=== PATIENT | female | born 1965 | race Caucasian/White ===

== ENCOUNTER 2019-10-09 05:59 | Inpatient (IN) ==
--- NOTE | 2019-09-19 15:58 | PAT Medication Instructions ---
Medication Instructions Date of Service September 19, 2019 Home Medications amlodipine 5 mg PO QAM rcfzsxmqge-mdcisrnrkfzzx-yhlu 1 tab PO HS PRN cholecalciferol (vitamin D3) [Vitamin D3] 25 mcg PO QAM qlwibvcvjly-mtutizmma-nclkxtka [Trelegy Ellipta] 1 inh INHALATION DAILY PRN hydrocodone-acetaminophen 1 tab PO Q6H PRN metoprolol tartrate 25 mg PO BID roflumilast [Daliresp] 500 mcg PO QAM zonisamide [Zonegran] 200 mg PO BID ASK your surgeon for instructions zjkxnjgfxu-vofklpqsnqerj-xuub 1 tab PO HS PRN DO NOT take the morning of surgery cholecalciferol (vitamin D3) [Vitamin D3] 25 mcg PO QAM roflumilast [Daliresp] 500 mcg PO QAM Take morning of surgery With a small sip of water, OTHERWISE NOTHING TO EAT OR DRINK AFTER MIDNIGHT: amlodipine 5 mg PO QAM ckrqvuklpoh-ecgvajmdg-llrlrntt [Trelegy Ellipta] 1 inh INHALATION DAILY PRN (if needed) hydrocodone-acetaminophen 1 tab PO Q6H PRN (okay to take up to 4 hours prior to surgery if needed) metoprolol tartrate 25 mg PO BID zonisamide [Zonegran] 200 mg PO BID Take evening before surgery dbdrauirtfj-kbdpgfpni-cjukozyx [Trelegy Ellipta] 1 inh INHALATION DAILY PRN (if needed) hydrocodone-acetaminophen 1 tab PO Q6H PRN (if needed) metoprolol tartrate 25 mg PO BID zonisamide [Zonegran] 200 mg PO BID Other Notes If you have any questions please call us at [phone] or [phone] or [phone] or [phone]
--- NOTE | 2019-09-24 13:14 | Anesthesiology Consultation ---
Date of Service September 24, 2019 Assessment & Plan (1) Encounter for pre-operative examination: Per PAT assessment on 09/23: Travel screen negative. No known COVID-19 positive contacts. No current COVID-19 related symptoms. No hx of COVID-19 testing in past 30 days. Chart Review Chart Review: Acceptable Risk for Surgery and Patient seen in Pre Admission Testing Teaching & Discussion Pre-Anesthesia Teaching/Discussion Notes: Instructed NPO after midnight before surgery,except medications with 15 cc of water. Medication instructions provided according to the PAT guidelines. History Surgery Operation Date: 10/09/19 13:55 Proposed Procedures p C4-C6 nterior Cervical Discectomy and Fusion, Spinal Cord Monitoring - Juancarlos Maria, Height/Weight Height: 4 ft 11 in Weight: 72 kg Allergies Allergy/AdvReac Type Severity Reaction Status Date / Time aspirin Allergy Severe Swelling Verified 09/17/19 11:20 of Lip/Tongue/Throat bacitracin Allergy Severe Hives Verified 09/17/19 11:20 [From Neosporin ([id number])] neomycin Allergy Severe Hives Verified 09/17/19 11:20 [From Neosporin ([id number])] Penicillins Allergy Severe Swelling Verified 09/17/19 11:20 of Lip/Tongue/Throat polymyxin B Allergy Severe Hives Verified 09/17/19 11:20 [From Neosporin ([id number])] Sulfa (Sulfonamide Allergy Severe Swelling Verified 09/17/19 11:20 Antibiotics) of Lip/Tongue/Throat Medications Home Medications Medication Instructions Recorded Confirmed Last Taken amlodipine 5 mg PO QAM 09/17/19 09/17/19 Unknown fvzlkledbv-vhainegkekmzy-bzfu 1 tab PO HS PRN 09/17/19 09/17/19 Unknown cholecalciferol (vitamin D3) 25 mcg PO QAM 09/17/19 09/17/19 Unknown [Vitamin D3] bxcqpcujrgn-beurpjnaf-rvdzcrsh 1 inh INHALATION DAILY PRN 09/17/19 09/17/19 Unknown [Trelegy Ellipta] hydrocodone-acetaminophen 1 tab PO Q6H PRN 09/17/19 09/17/19 Unknown metoprolol tartrate 25 mg PO BID 09/17/19 09/17/19 Unknown roflumilast [Daliresp] 500 mcg PO QAM 09/17/19 09/17/19 Unknown zonisamide [Zonegran] 200 mg PO BID 09/17/19 09/17/19 Unknown rgkejnmicdmo-fltw-rsmtx acid 2 tab PO DAILY 09/24/19 09/24/19 Unknown [Centrum Women] Past Medical History Medical History (Updated 09/25/19 @ 08:54 by Destinee Vigil) Anxiety Chronic back pain Chronic obstructive pulmonary disease Degenerative disc disease Glaucoma History of cardiac arrhythmia denies a.fib/a. flutter, ?PVCs (NSR without arrhythmia on 09/24/19 preop EKG at [facility])- limited details from patient, controlled on metoprolol Hypertension Migraine Osteoarthritis Exercise / Class Metabolic Activity II 4-5 Yardwork/Stairs/Walk up hill (walk multiple miles per day without chest pain/sob) Past Surgical History Surgical History History of arthroscopy RIGHT History of bilateral tubal ligation History of cholecystectomy History of colonoscopy History of endoscopic sinus surgery X2 History of repair of rotator cuff RIGHT History of surgery on arm RIGHT FOR BREAK TEEN History of tonsillectomy History of tooth extraction Past Anesthesia History No Hx of Anesthesia Complications and No Family Hx of Anesthesia Complications History of PONV No Hx of PONV and No Hx of Motion Sickness Social History Smoking Status: Current every day smoker tobacco type: cigarettes Smoking cigarettes per day: < 1/2 PPD x 30+ years Do You Dip or Chew Tobacco: No Hx Alcohol Use: Yes alcohol intake frequency: holidays/special occasions only Hx Substance Use: No substance use type: does not use Review of Systems Patient denies chest pain, shortness of breath, fever, chills, cough, wheezing, palpitations. Physical Exam Vital Signs VITALS BP 134/75 P 76 TEMP 98.3 SP02 96%RA RESP 16 PHYSICAL Decreased cervical extension 2/2 cervicalgia Full TMJ range of motion. TMD 3 finger breaths Mallampati Score 3 Dentition: full dentures upper/lower Lungs: clear throughout to auscultation Cardiac: regular rate and rhythm, no murmurs noted Spine: normal Carotid arteries: negative bruit Extremities: no edema Testing Laboratory Results 09/24/19 13:40 09/24/19 13:40 PT 10.0 Seconds (9.0-12.0) 09/24/19 13:40 INR 0.9 (0.9-1.1) 09/24/19 13:40 APTT 28.2 Seconds (21.0-31.0) 09/24/19 13:40 Urine Color Yellow 09/24/19 12:18 Urine Appearance Clear (Clear) 09/24/19 12:18 Urine pH 7.0 (4.5-7.5) 09/24/19 12:18 Ur Specific [place] 1.008 (1.000-1.030) 09/24/19 12:18 Urine Protein Negative (Negative) 09/24/19 12:18 Urine Glucose (UA) Negative (Negative) 09/24/19 12:18 Urine Ketones Negative (Negative) 09/24/19 12:18 Urine Nitrite Negative (Negative) 09/24/19 12:18 Ur Leukocyte Esterase Negative (Negative) 09/24/19 12:18 Blood Type O Positive 09/24/19 13:40 Antibody Screen NEGATIVE 09/24/19 13:40 Electrocardiogram Date: 09/24/19 Findings: + NSR @ (75) Chest X-Ray Date: 09/24/19 FINDINGS: The cardiac and mediastinal contours are normal. There is no evidence of focal pulmonary consolidation. There is no evidence of failure. No pleural effusions are visualized.[Slight indistinctness of the lower left heart border is likely secondary to a fat pad. An equivocal 7 mm nodule projected beneath the left hemidiaphragm, is likely either postinflammatory or related to gastric contents. IMPRESSION: No active disease in the chest. No active disease in the chest. Will have PAT medical secretary receptionist forward CXR report to PCP for their reference*
--- NOTE | 2019-09-24 14:11 | XRay Report ---
XR chest Pre-admission PA/Lat CLINICAL HISTORY: Preoperative chest COMPARISON STUDY: No previous studies for comparison. FINDINGS: The cardiac and mediastinal contours are normal. There is no evidence of focal pulmonary co nsolidation. There is no evidence of failure. No pleural effusions are visualized.[Slight indistinctn ess of the lower left heart border is likely secondary to a fat pad. An equivocal 7 mm nodule project ed beneath the left hemidiaphragm, is likely either postinflammatory or related to gastric contents. IMPRESSION: No active disease in the chest. ACT 112: Negative or not required by law. Electronically signed by: Ravin Pillai M.D. 09/24/2019 2:10 PM
[2019-09-24 14:33] LABS: Appearance Urine Clear (Clear); Bilirubin Urine Negative (Negative); Blood Urine Negative (Negative); Color Urine Yellow; Glucose Urine UA Negative (Negative); Ketones Urine Negative (Negative); Leukocyte Esterase Urine Negative (Negative); Nitrite Urine Negative (Negative); Protein Urine Negative (Negative); Specific Gravity Urine 1.008 (1.000-1.030); Urobilinogen Urine Negative (Negative)
[2019-09-24 16:03] LABS: Basophils # (auto) 0.04 K/uL (0-0.2); Basophils % (auto) 0.4 %; Eosinophils # (auto) 0.18 K/uL (0-0.5); Eosinophils % (auto) 1.7 %; Hematocrit (blood only) 40.4 % (37-47); Hemoglobin 13.3 g/dL (12.0-16.0); Immature Granulocytes # (auto) 0.02 K/uL (0.00-0.02); Immature Granulocytes % (auto) 0.2 %; Lymphocytes # (auto) 2.84 K/uL (1.2-3.4); Lymphocytes % (auto) 26.2 %; Mean Corpuscular Hemoglobin 28.4 pg (25-34); Mean Corpuscular Hgb Conc 32.9 g/dL (32-36); Mean Corpuscular Volume 86.3 fL (80-100); Mean Platelet Volume 11.5 fL (7.4-10.4); Monocytes # (auto) 0.74 K/uL (0.11-0.59); Monocytes % (auto) 6.8 %; Neutrophils % (auto) 64.7 %; Platelet Count 280 K/uL (130-400); RDW Coefficient of Variation 13.7 % (11.5-14.5); RDW Standard Deviation 42.9 fL (36.4-46.3); Red Blood Count 4.68 M/uL (4.2-5.4); White Blood Count 10.82 K/uL (4.8-10.8)
[2019-09-24 16:10] LABS: BUN Creatinine Ratio 8.9 (10-20); Calcium 9.4 mg/dl (8.5-10.1); Creatinine Clr Calc Pharmacy 67.8 ml/min; Est GFR (African American) 95.5; Est GFR (Non-African American) 82.4; Potassium 3.8 mmol/L (3.5-5.1)
[2019-09-24 16:15] LABS: INR 0.9 (0.9-1.1); Partial Thromboplastin Time 28.2 Seconds (21.0-31.0)
--- NOTE | 2019-09-25 06:52 | Electrocardiogram Report ---
Test Reason : Blood Pressure : / mmHG Vent. Rate : 075 BPM Atrial Rate : 075 BPM P-R Int : 176 ms QRS Dur : 106 ms QT Int : 388 ms P-R-T Axes : 067 076 071 degrees QTc Int : 433 ms Normal sinus rhythm Normal ECG No previous ECGs available Confirmed by Jayden Rueda ([id number]) on 09/25/2019 6:51:42 AM Referred By: Juancarlos Maria Confirmed By:Jayden Rueda
[~2019-10-09 05:59] MED LIST: [UNRECOGNIZED DRUG - REMARK] SCH
[2019-10-09] MEDS ORDERED: CeleBREX 200 MG CAP PO SCH (06:00)
[2019-10-09] MEDS ORDERED: ACETAMINOPHEN 500 MG TAB PO SCH (06:00)
[2019-10-09] MEDS ORDERED: GABAPENTIN 600 MG DOSE PO SCH (06:00)
[2019-10-09] MEDS ORDERED: CEFAZOLIN 2000MG 2,000 MG/15 ML SYR IV SCH (06:00)
[2019-10-09] MEDS ORDERED: LR 15ML/HR IV SCH (06:00)
[2019-10-09] MEDS ORDERED: LIDOCAINE HCL 2% 2 ML VIAL/AMP(20MG/ML) INFIL ONE (06:53)
[2019-10-09] MEDS ORDERED: DEXAMETHASONE SOD INJ 4 MG/ML VIAL ONE (06:53)
[2019-10-09] MEDS ORDERED: SUCCINYLCHOLINE CHLORIDE 20 MG/ML 10 ML VIAL IV ONE (06:53)
[2019-10-09] MEDS ORDERED: PROPOFOL IV EMULSION 10 MG/ML 20 ML VIAL IV ONE (06:53)
[2019-10-09] MEDS ORDERED: ONDANSETRON INJ 2 MG/ML 2 ML VIAL ONE (06:53)
[2019-10-09] MEDS ORDERED: GLYCOPYRROLATE 0.2 MG/ML VIAL ONE (06:53)
[2019-10-09] MEDS ORDERED: MIDAZOLAM HCL 1 MG/ML 2ML VIAL ONE (06:53)
[2019-10-09] MEDS ORDERED: HYDROmorphone INJ 2 MG/ML SYR/VIAL ONE (06:53)
[2019-10-09] MEDS ORDERED: NEOSTIGMINE METHYLSULFATE 1 MG/ML 10ML VIAL ONE (06:53)
[2019-10-09] MEDS ORDERED: ROCURONIUM BROMIDE 10 MG/ML 5 ML VIAL IV ONE (06:53)
[2019-10-09] MEDS ORDERED: BACITRACIN INJ 50,000 UNIT VIAL ONE (07:00)
[2019-10-09] MEDS ORDERED: ONDANSETRON INJ 2 MG/ML 2 ML VIAL IV PRN ×2 (07:33→10:48)
[2019-10-09] MEDS ORDERED: HYDROmorphone INJ 1 MG/ML SYRINGE IV PRN ×2 (07:33→10:48)
[2019-10-09] MEDS ORDERED: fentaNYL citrate 100 MCG/2 ML VIAL IV PRN (07:33)
[2019-10-09] MEDS ORDERED: PHENYLEPHRINE 100MCG/ML 5ML SYR IV PRN (07:33)
[2019-10-09] MEDS ORDERED: LABETALOL HCL IV 5 MG/ML 20ML IV PRN (07:33)
[2019-10-09] MEDS ORDERED: ePHEDrine sulfate 50 MG/ML AMP IV PRN (07:33)
[2019-10-09] MEDS ORDERED: ATROPINE SULFATE 0.1 MG/ML 10ML SYR IV PRN (07:33)
[2019-10-09] MEDS ORDERED: MEPERIDINE HCL 25 MG/ML CARP/VIAL IV PRN (07:33)
--- NOTE | 2019-10-09 07:34 | History & Physical Bridge Note ---
Date of Service October 09, 2019 History & Physical Bridge Note I have examined the patient, reviewed the History & Physical and in the interval since the performance of the History & Physical I have noted the following changes of clinical significance: no changes noted
--- NOTE | 2019-10-09 07:35 | History & Physical Report ---
Date of Service October 09, 2019 Assessment & Plan (1) Cervical stenosis of spinal canal: C4-C6 anterior cervical discectomy and fusion Present on Admission?: Yes History of Present Illness Chief Complaint: Neck and arm pain Primary Care Provider: Randi Shaw, This is a 48-year-old female presents with chronic persistent neck and arm pain peer after failing extensive course of nonoperative care is here for surgical invention. Allergies Allergy/AdvReac Type Severity Reaction Status Date / Time aspirin Allergy Severe Swelling Verified 10/09/19 06:34 of Lip/Tongue/Throat bacitracin Allergy Severe Hives Verified 10/09/19 06:34 [From Neosporin ([id number])] neomycin Allergy Severe Hives Verified 10/09/19 06:34 [From Neosporin ([id number]-hel-[id number])] Penicillins Allergy Severe Swelling Verified 10/09/19 06:34 of Lip/Tongue/Throat polymyxin B Allergy Severe Hives Verified 10/09/19 06:34 [From Neosporin ([id number]-hedon)] Sulfa (Sulfonamide Allergy Severe Swelling Verified 10/09/19 06:34 Antibiotics) of Lip/Tongue/Throat Home Medications Home Medications Medication Instructions Recorded Confirmed Type amlodipine 5 mg PO QAM 09/17/19 10/09/19 History jfhekiuzyr-uofkfmqwjvebo-hvoz 1 tab PO HS PRN 09/17/19 10/09/19 History cholecalciferol (vitamin D3) 25 mcg PO QAM 09/17/19 10/09/19 History [Vitamin D3] xqyfmwwsqpb-nzkytfzxf-gnikblcc 1 inh INHALATION DAILY PRN 09/17/19 10/09/19 History [Trelegy Ellipta] hydrocodone-acetaminophen 1 tab PO Q6H PRN 09/17/19 10/09/19 History metoprolol tartrate 25 mg PO BID 09/17/19 10/09/19 History roflumilast [Daliresp] 500 mcg PO QAM 09/17/19 10/09/19 History zonisamide [Zonegran] 200 mg PO BID 09/17/19 10/09/19 History ffoymemvgjay-ciyy-teura acid 2 tab PO DAILY 09/24/19 10/09/19 History [Centrum Women] Past Med/Surg History Social History Smoking Status: Current every day smoker Cigarettes Per Day: < 1/2 PPD x 30+ years; Second Hand Exposure: No; Do You Dip or Chew Tobacco: No; Tobacco Cessation Education Requested by Patient: No Hx Alcohol Use: Yes Hx Substance Use: No Preferred Language: Macedonian Communication Ability: Effective Senior Infrastructure Architect Required: No Beliefs That Will Affect Care: None Current Living Situation: Spouse Other Information That Helps Us Care for You: No Feels Safe at Home: Yes Safety Concerns: Feels Safe At This Time Physical Exam Physical Exam: Patient is alert and oriented neurologically intact. Heart regular rate and rhythm. Lungs clear to auscultation. Results & Data Vital Signs (Past 12 Hours) Vital Signs Temp Pulse Resp BP Pulse Ox 10/09/19 06:38 36.5 C 76 20 151/90 H 97
[2019-10-09] MEDS ORDERED: CLINDAMYCIN 600 MG/54 ML D5W IV ONE (07:38)
[2019-10-09] MEDS ORDERED: CLINDAMYCIN PHOS 300 MG/2 ML VIAL ONE (07:53)
[2019-10-09] MEDS ORDERED: ESMOLOL HCL INJ 10 MG/ML 10ML VIAL IV ONE (08:22)
[2019-10-09] MEDS: BUPIVACAINE/EPINEPHRINE 0.25% 1:200,000 30 ML VIAL ONE ×2 (08:58→09:13)
[2019-10-09] MEDS ORDERED: FLOSEAL HEMOSTATIC MATRIX 10ML TOP ONE (09:14)
--- NOTE | 2019-10-09 09:18 | Operative Report ---
Post Operative Report Pre & Post Diagnosis Operation Date: 10/09/19 07:45 Pre-Op Diagnosis: Spinal Stenosis, Cervical Region Post-Op Diagnosis: Spinal Stenosis, Cervical Region I identified the patient and participated in the time-out.: Yes Procedure Operation Date: 10/09/19 07:45 Actual Procedures #1 anterior cervical discectomy with bilateral foraminotomies C4-5 and C5-6. #2 anterior cervical arthrodesis C4-5 and C5-6. #3 placement of Spira 6 mm cage at C4-5 and 7 mm cage at C5-6 both filled with DBM. #4 application of 5 complete and screws across C4-5 and C5-6. Surgeon Juancarlos Maria, DO [employer] Labourer Yamilex Wheeler Estimated Blood Loss 10 Findings Consistent with Post-Op Diagnosis Specimens None Indications This is a 54-year-old female presents with above-mentioned diagnosis after failing extensive course of nonoperative care is here for surgical intervention. Description of Procedure Patient was met with identified informed consent obtained. Patient was then taken to the operative suite underwent an patient placed in the supine position the Polo table with head Lujan head sawyer automatic. All bony prominences well- padded eyes inspected to ensure no external pressure placed upon them. This point the anterior cervical spine was prepped and draped in normal sterile fashion. With the assistance of fluoroscopy identified the C5 vertebral body and a transverse incision was placed along the right anterior aspect of the cervical spinal lines region. Sharp dissection with assistance of bipolar electrocautery was performed down to and exposing the anterior cervical spine from C4 to C6. A self-retaining retractor was placed. Then performed a complete discectomy of C45 to the uncovertebral joints bilaterally. [place] distracting pins were utilized to assist in visualization. I removed all posterior annular fibers longitudinal ligament bilateral foraminotomies performed. Endplates were then burred to subcortical bleeding bone and a 6 mm Spira cage filled with DBM tapped in position. Then proceeded to C5-6 and again complete discectomy performed out to the uncovertebral joints bilaterally. [place] distracting pins again utilized. I removed all posterior annular fibers longitudinal ligament bilateral foraminotomies performed. Endplates were then burred to subcortical bleeding bone and a 7 mm Spira cage filled with DBM tapped in position. The distracting apparatus was removed all anterior osteophytes burred to a smooth cortical surface and a 5 complete screws applied with the assistance of fluoroscopy. Incision was then copiously irrigated explored to ensure no damage to surrounding structures remaining bleeding. 10 round MARCO ANTONIO drain inserted. Incision was then closed with 2-0 Vicryl in the fascia and 4 Monocryl for final skin closure. Steri-Strip sterile dressings placed. Patient waken taken PACU stable addition. Please note spinal cord monitoring was utilized throughout the procedure no changes noted. Lastly Yamilex Wheeler was present at the entire procedure involved in patient positioning complex portions of the surgery and final skin closure. I attest to the content of the Intraoperative Record and any orders documented therein. Any exceptions are noted below.
[2019-10-09] MEDS ORDERED: PHENYLEPHRINE HCL 10 MG/ML VIAL ONE (09:30)
[2019-10-09] MEDS ORDERED: ePHEDrine sulfate 50 MG/ML AMP ONE (09:30)
[2019-10-09] MEDS ORDERED: METOPROLOL TARTRATE 1 MG/ML VIAL IV ONE (09:30)
--- NOTE | 2019-10-09 09:34 | Fluoroscopy Report ---
FL cervical 2-3V HISTORY: 54 years-old Female C4-6 ACDF cervical spine fusion COMPARISON: None TECHNIQUE: 2 spot fluoroscopic images of the cervical spine were obtained utilizing 9.2 seconds fluor oscopy time FINDINGS: Anterior plate and screw fusion with discectomy changes at C4-C6. Hardware appears intact. Satisfacto ry alignment. Endotracheal tube noted. IMPRESSION: Fluoroscopic assistance as above. Please see operative report for further details. ACT 112: Negative or not required by law. The above report was generated using voice recognition software. It may contain grammatical, syntax o r spelling errors. Electronically signed by: Xu Wing M.D. 10/09/2019 9:33 AM
--- NOTE | 2019-10-09 10:27 | Anesthesiology Progress Note ---
Date of Service October 09, 2019 Anesthesia Post Procedure Vital Signs Vital Signs: Temp Pulse Pulse Resp BP Pulse Ox 10/09/19 10:25 36.3 C L 70 16 107/65 98 10/09/19 10:15 77 12 107/60 95 10/09/19 10:05 63 15 114/59 L 97 10/09/19 09:55 73 16 100/52 L 99 10/09/19 09:45 78 16 136/63 99 10/09/19 09:35 84 15 140/77 99 10/09/19 09:25 36.1 C L 89 16 133/68 99 10/09/19 06:38 36.5 C 76 20 151/90 H 97 Pain Intensity Neck: Pain Intensity: 1 Transfer of Care Handoff Completed per policy Notes Mental Status: alert / awake / arousable Patient Amnestic to Procedure: Yes Nausea / Vomiting: adequately controlled Pain: adequately controlled Airway Patency, RR, SpO2: stable & adequate BP & HR: stable & adequate Hydration State: stable & adequate Anesthetic Complications: no major complications apparent and Pt Satisfied with anesthetic care Notes: The patient is awake and comfortable. Her neck does not have any swelling.
[2019-10-09] MEDS ORDERED: DO NOT ADMINISTER PNEUMOCOCCAL VACCINE PRN (10:48)
[2019-10-09] MEDS ORDERED: ONDANSETRON 4 MG OD TAB PO PRN (10:48)
[2019-10-09] MEDS ORDERED: FAMOTIDINE 20 MG TAB PO PRN (10:48)
[2019-10-09] MEDS ORDERED: DO NOT ADMINISTER FLU VACCINE PRN (10:48)
[2019-10-09] MEDS ORDERED: NALOXONE HCL 0.4 MG/1 ML VIAL/CARP IV PRN (10:48)
[2019-10-09] MEDS ORDERED: DEXAMETHASONE SOD PHOSPHATE 8 MG in SYRINGE 0 ML IV PRN (10:48)
[2019-10-09] MEDS ORDERED: SOD PHOSPHATE/SOD BIPHOSPHATE ENEMA 132 ML BTL PR PRN (10:48)
[2019-10-09] MEDS ORDERED: LORazepam 0.5 MG/1 ML VIAL IV PRN (10:48)
[2019-10-09] MEDS ORDERED: ALUMINUM/MAGNESIUM SUSP 30 ML UDC PO PRN (10:48)
[2019-10-09] MEDS ORDERED: BUTALBITAL/ACETAMIN/CAFFEINE TAB PO PRN (10:48)
[2019-10-09] MEDS ORDERED: ACETAMINOPHEN 500 MG TAB PO PRN (10:48)
[2019-10-09] MEDS ORDERED: METOCLOPRAMIDE HCL INJ 5 MG/ML 2 ML VIAL IV PRN (10:48)
[2019-10-09] MEDS ORDERED: ACETAMINOPHEN 1,000 MG/100 ML VIAL IV PRN (10:48)
[2019-10-09] MEDS ORDERED: PROMETHAZINE HCL 12.5 MG in SODIUM CHLORIDE 0.9% 50 ML IV PRN (10:48)
[2019-10-09] MEDS ORDERED: LORazepam 0.5 MG TAB PO PRN (10:48)
[2019-10-09] MEDS ORDERED: TRAMADOL HCL 50 MG TABLET PO PRN (10:48)
[2019-10-09] MEDS ORDERED: MAGNESIUM HYDROXIDE SUSP 30 ML UDC PO PRN (10:48)
[2019-10-09] MEDS ORDERED: RACEPINEPHRINE 2.25% NEBU SOLN 0.5 ML VIAL INH PRN (10:48)
[2019-10-09] MEDS: LACTATED RINGER'S 1,000 ML IV SCH ×2 (11:01→20:38)
[2019-10-09] MEDS ORDERED: UMECLIDINIUM/VILANTEROL 62.5/25MCG 7 PUFFS/INHALER INH PRN (12:13)
[2019-10-09] MEDS ORDERED: FLUTICASONE FUROATE 100MCG 14 PUFFS/INHALER INH PRN (12:15)
--- NOTE | 2019-10-09 12:42 | Consultation ---
Date of Consultation October 09, 2019 Assessment & Plan (1) S/P spinal surgery: Post op day# 0 S/P ACDF C4-C6 by Dr Maria EBL# 10ml -pain management per ortho -wound management per ortho -PT/OT as appropriate -DVT prophylaxis per ortho -monitor H&H for acute blood loss anemia; Pre-op Hgb: 13 (2) Hypertension: BPs: 117/76 -Continue metoprolol -Continue amlodipine with holding parameters (3) Chronic obstructive pulmonary disease: No signs of exacerbation -Continue home inhaler, daliresp DVT Prophylaxis -SCDs per ortho Disposition per primary service Follows with Dr Pena in [place] for routine care Pt was seen and care coordinated with Dr Muhammad. See addendum Thank you for this consultation. We will follow the patient with you during their hospital stay. You can reach a member of the [facility] Hospitalist Team 10/10 via pager @ [phone]. Supervising Physician Co-Signing Physician Notes I, Dr. Ever Muhammad, have seen the patient with physician orthopedic physician assistant and agree with the assessment and plans as above and would like to comment that on Physical Exam General: no acute distress, speaks in full sentences HEENT: neck collar, MARCO ANTONIO drain from neck with serosanguinous fluid Lungs: lung sound are clear on anterior auscultation Heart: regular rate Abdomen: soft, nontender Extremities: able to move the hands and feet Assessment and Plan -Spinal Stenosis, Cervical Region and s/p neck surgery of cervical spine by Dr. Maria on 10/09/2019 (Operation Date: 10/09/19 07:45, Actual Procedures #1 anterior cervical discectomy with bilateral foraminotomies C4-5 and C5-6. #2 anterior cervical arthrodesis C4-5 and C5-6. #3 placement of Spira 6 mm cage at C4-5 and 7 mm cage at C5-6 both filled with DBM. #4 application of 5 complete and screws across C4-5 and C5-6.) -hospitalist medicine following the patient as consult service -pain appears controlled, not in any respiratory distress -she will gradually be evaluated by PT/OT services -management of MARCO ANTONIO drain of the neck by orthopedic service -monitor the blood counts -agree with other assessment and plans as described by physician orthopedic physician assistant History of Present Illness Requesting Physician: Dr Maria Reason for Consultation: Post op medical management Attending Physician: Juancarlos Maria, DO History of Present Illness Pt is 54 y/o F with PMH HTN, COPD, anxiety, migraine seen in medical consultation s/p elective ACDF today by Dr Maria. Post op pt reports some neck pain. States able to drink some water without any choking. Denies N/V, SOB, CP. Denies fever/chills, PORTILLO, dizziness, vision changes, cough, rhinorrhea, abdominal pain, paresthesias, extremity weakness, extremity edema, rashes, urinary symptoms. Allergies Allergy/AdvReac Type Severity Reaction Status Date / Time aspirin Allergy Severe Swelling Verified 10/09/19 06:34 of Lip/Tongue/Throat bacitracin Allergy Severe Hives Verified 10/09/19 06:34 [From Neosporin (zey-qdh-[id number])] neomycin Allergy Severe Hives Verified 10/09/19 06:34 [From Neosporin ([id number]-[id number])] Penicillins Allergy Severe Swelling Verified 10/09/19 06:34 of Lip/Tongue/Throat polymyxin B Allergy Severe Hives Verified 10/09/19 06:34 [From Neosporin (jqw-wkj-ehuow)] Sulfa (Sulfonamide Allergy Severe Swelling Verified 10/09/19 06:34 Antibiotics) of Lip/Tongue/Throat Home Medications Home Medications Medication Instructions Recorded Confirmed Type amlodipine 5 mg PO QAM 09/17/19 10/09/19 History bevuobbscn-bhsdgvndrcmdr-ngap 1 tab PO HS PRN 09/17/19 10/09/19 History cholecalciferol (vitamin D3) 25 mcg PO QAM 09/17/19 10/09/19 History [Vitamin D3] hnrddfchqzv-pqkfwtdbf-gvpdcrbq 1 inh INHALATION DAILY PRN 09/17/19 10/09/19 History [Trelegy Ellipta] hydrocodone-acetaminophen 1 tab PO Q6H PRN 09/17/19 10/09/19 History metoprolol tartrate 25 mg PO BID 09/17/19 10/09/19 History roflumilast [Daliresp] 500 mcg PO QAM 09/17/19 10/09/19 History zonisamide [Zonegran] 200 mg PO BID 09/17/19 10/09/19 History cinwzbpaejhc-yrhb-gvvqf acid 2 tab PO DAILY 09/24/19 10/09/19 History [Centrum Women] Patient History Medical History Anxiety Chronic back pain Chronic obstructive pulmonary disease Degenerative disc disease Glaucoma History of cardiac arrhythmia denies a.fib/a. flutter, ?PVCs (NSR without arrhythmia on 09/24/19 preop EKG at [facility])- limited details from patient, controlled on metoprolol Hypertension Migraine Osteoarthritis Surgical History History of arthroscopy RIGHT History of bilateral tubal ligation History of cholecystectomy History of colonoscopy History of endoscopic sinus surgery X2 History of repair of rotator cuff RIGHT History of surgery on arm RIGHT FOR BREAK TEEN History of tonsillectomy History of tooth extraction Social History Smoking Status: Current every day smoker Cigarettes Per Day: < 1/2 PPD x 30+ years; Second Hand Exposure: No; Do You Dip or Chew Tobacco: No; Tobacco Cessation Education Requested by Patient: No Hx Alcohol Use: Yes Hx Substance Use: No Preferred Language: Botswanan Communication Ability: Effective Granulator Machine Operator Required: No Beliefs That Will Affect Care: None Current Living Situation: Spouse Other Information That Helps Us Care for You: No Feels Safe at Home: Yes Safety Concerns: Feels Safe At This Time Review of Systems Review of Systems: All systems reviewed & are unremarkable except as noted in HPI & below Physical Exam Physical Exam: General: no distress, WDWN Head: normocephalic, atraumatic Eyes: conjunctiva non-injected, anicteric ENT: normal inspection external ears, nose, mucous membranes moist Neck: C-collar in place, anterior neck with dressing in place and is dry, MARCO ANTONIO drain in place with serosanguineous drainage, trachea midline Lungs: clear, no respiratory distress, no wheezing/rhonchi/rales CV: RRR, no murmur, no pretibial edema Abd: normal BS, soft, non-tender Ext: no cyanosis, no calf tenderness; able to move bilateral arms, bilateral pedal pushes and pulls intact, bilateral didactic program in dietetics director strength equal, sensation to light touch upper and lower extremities intact, distal pulses intact Neuro: A&O x 3, no focal deficits noted, normal affect Skin: warm, dry Results & Data ([facility]) Vital Signs (Past 12 Hours) Vital Signs Temp Pulse Pulse Resp BP Pulse Ox Pulse Ox 10/09/19 11:55 66 16 117/67 98 10/09/19 11:41 62 14 96 10/09/19 11:14 36.4 C L 83 15 106/73 99 10/09/19 11:00 97 10/09/19 10:45 36.4 C L 70 16 112/63 98 10/09/19 10:35 61 13 110/55 L 98 10/09/19 10:25 36.3 C L 70 16 107/65 98 10/09/19 10:15 77 12 107/60 95 10/09/19 10:05 63 15 114/59 L 97 10/09/19 09:55 73 16 100/52 L 99 10/09/19 09:45 78 16 136/63 99 10/09/19 09:35 84 15 140/77 99 10/09/19 09:25 36.1 C L 89 16 133/68 99 10/09/19 06:38 36.5 C 76 20 151/90 H 97
[2019-10-09] MEDS ORDERED: ALBUTEROL 0.083% NEBU SOLN 3 ML VIAL NEB PRN (12:56)
[2019-10-09] MEDS: HYDROCODONE/ACETAMOPHEN 5/325MG TAB PO PRN ×2 (14:20→18:24)
[2019-10-09] MEDS: CLINDAMYCIN 600 MG in DEXTROSE 5% 50 ML IV SCH ×2 (16:00→23:28)
[2019-10-09] MEDS: METOPROLOL TARTRATE 25 MG TAB PO SCH (20:37)
[2019-10-09] MEDS ORDERED: DOCUSATE SODIUM/SENNA 50/8.6MG TAB PO SCH (21:00)
[2019-10-09] MEDS: HYDROmorphone INJ 0.5 MG/0.5 ML SYR IV PRN (21:33)
[2019-10-10] MEDS: HYDROmorphone INJ 0.5 MG/0.5 ML SYR IV PRN (01:52)
[2019-10-10] MEDS ORDERED: CLINDAMYCIN 600 MG/54 ML BAG IV SCH (06:00)
[2019-10-10 06:30] LABS: Hematocrit (blood only) 37.4 % (37-47); Hemoglobin 11.9 g/dL (12.0-16.0); Mean Corpuscular Hemoglobin 27.6 pg (25-34); Mean Corpuscular Hgb Conc 31.8 g/dL (32-36); Mean Corpuscular Volume 86.8 fL (80-100); Mean Platelet Volume 10.8 fL (7.4-10.4); Platelet Count 265 K/uL (130-400); RDW Coefficient of Variation 13.6 % (11.5-14.5); RDW Standard Deviation 43.6 fL (36.4-46.3); Red Blood Count 4.31 M/uL (4.2-5.4); White Blood Count 11.71 K/uL (4.8-10.8)
[2019-10-10 07:03] LABS: Creatinine Clr Calc Pharmacy 85.8 ml/min; Est GFR (African American) 116.2; Est GFR (Non-African American) 100.3; Potassium 3.5 mmol/L (3.5-5.1)
[2019-10-10] MEDS: HYDROCODONE/ACETAMOPHEN 5/325MG TAB PO PRN (07:17)
[2019-10-10] MEDS ORDERED: POTASSIUM CHLORIDE 20 MEQ/15 ML UDC PO ONE (07:45)
[2019-10-10] MEDS ORDERED: POTASSIUM CHLORIDE / WTR 10 MEQ/100 ML PLCT IV ONE (07:45)
[2019-10-10] MEDS ORDERED: DEXAMETHASONE SOD PHOSPHATE 8 MG in SYRINGE 0 ML IV ONE (08:00)
--- NOTE | 2019-10-10 08:07 | Hospitalist Progress Note ---
Date of Service October 10, 2019 Assessment & Plan (1) S/P spinal surgery: -Spinal Stenosis, Cervical Region and s/p neck surgery of cervical spine by Dr. Maria on 10/09/2019 (Operation Date: 10/09/19 07:45, Actual Procedures #1 anterior cervical discectomy with bilateral foraminotomies C4-5 and C5-6. #2 anterior cervical arthrodesis C4-5 and C5-6. #3 placement of Spira 6 mm cage at C4-5 and 7 mm cage at C5-6 both filled with DBM. #4 application of 5 complete and screws across C4-5 and C5-6.) -hospitalist medicine follows the patient as consult service -pain appears controlled, not in any respiratory distress -10/10/2019: Patient seen and examined with MARCO ANTONIO drain present but she reports this will be removed today and she anticipates hospital discharge by orthopedics. Her Hemoglobin is 11.9 which appears appropriate level after her surgery. Patient's serum potassium low normal as 3.5 and oral potassium given. Patient has not other symptoms. denies dizziness, or headache, or neck pain, or chest pain, or shortness of breath, or abdomen pain (2) Hypertension: -Continue metoprolol -Continue amlodipine (3) Chronic obstructive pulmonary disease: No signs of exacerbation -Continue home inhaler, daliresp DVT Prophylaxis -SCDs per ortho Disposition per primary service Follows with Dr Pena in [place] for routine care. Patient reports she wants hospital records from this stay sent to [facility]. I discussed with her nurse and chemical unit operator to help patient get these records sent there. Admission and Anticipated Discharge Date Admission Date: October 09, 2019 Subjective -10/10/2019: Patient seen and examined with MARCO ANTONIO drain present but she reports this will be removed today and she anticipates hospital discharge by orthopedics. Her Hemoglobin is 11.9 which appears appropriate level after her surgery. Patient's serum potassium low normal as 3.5 and oral potassium given. Patient has not other symptoms. denies dizziness, or headache, or neck pain, or chest pain, or shortness of breath, or abdomen pain Review of Systems Review of Systems: All systems reviewed & are unremarkable except as noted in Subjective Physical Exam Constitutional: comfortable Eyes: PERRL, conjunctivae normal, anicteric sclerae EOM intact bilaterally ENMT: external ear and nose normal, oropharynx normal Neck: MARCO ANTONIO drain from neck Respiratory: normal respiratory effort, lungs clear to auscultation Cardiovascular: Rate/Rhythm: regular rate Gastrointestinal (Abdomen): normal bowel sounds, soft, nontender, no hepatosplenomegaly Musculoskeletal: Head/Neck/Chest: normocephalic and head atraumatic Neurologic: PERRL, EOMI, accommodation nl, no face palsy, no dysarthria Psychiatric: A+Ox3, euthymic affect Results & Data Results & Data ([facility]) Vital Signs (Past 12 Hours) Vital Signs Temp Pulse Pulse Resp BP Pulse Ox 10/10/19 07:56 36.8 C 83 17 145/77 H 93 10/10/19 07:08 94 H 16 94 10/10/19 05:54 36.6 C 88 18 147/83 H 94 10/10/19 03:58 89 16 94 10/10/19 03:45 36.8 C 88 16 149/78 H 97 10/10/19 01:45 36.8 C 85 20 155/75 H 96 10/09/19 23:45 36.6 C 88 18 150/78 H 99 10/09/19 23:27 77 16 98 10/09/19 21:37 36.6 C 90 16 158/89 H 97
[2019-10-10] MEDS: METOPROLOL TARTRATE 25 MG TAB PO SCH (08:28)
[2019-10-10] MEDS ORDERED: CHOLECALCIFEROL 1,000 UNITS 25 MCG TAB PO SCH (09:00)
[2019-10-10] MEDS ORDERED: AMLODIPINE BESYLATE 5 MG TAB PO SCH (09:00)
[2019-10-10] MEDS ORDERED: ROFLUMILAST 500 MCG TAB PO SCH (09:00)
[2019-10-10] MEDS ORDERED: CEROVITE ADV FORMULA TAB PO SCH (09:00)
--- NOTE | 2019-10-10 10:03 | Discharge Summary ---
Date of Service October 10, 2019 Admission HPI Per Admitting Provider This is a 48-year-old female presents with chronic persistent neck and arm pain peer after failing extensive course of nonoperative care is here for surgical invention. Principal Diagnosis Cervical spinal stenosis with radiculopathy Discharge Data Allergies Allergy/AdvReac Type Severity Reaction Status Date / Time aspirin Allergy Severe Swelling Verified 10/09/19 06:34 of Lip/Tongue/Throat bacitracin Allergy Severe Hives Verified 10/09/19 06:34 [From Neosporin ([id number])] neomycin Allergy Severe Hives Verified 10/09/19 06:34 [From Neosporin ([id number])] Penicillins Allergy Severe Swelling Verified 10/09/19 06:34 of Lip/Tongue/Throat polymyxin B Allergy Severe Hives Verified 10/09/19 06:34 [From Neosporin ([id number])] Sulfa (Sulfonamide Allergy Severe Swelling Verified 10/09/19 06:34 Antibiotics) of Lip/Tongue/Throat Consultations 10/09/19 10:48 Consult Hospitalist Routine Procedures Performed Operation Date: 10/09/19 07:45 Actual Procedures p C4-C6 Anterior Cervical Discectomy and Fusion, Spinal Cord Monitoring(Not A pplicable) - Juancarlos Maria DO Ordered Studies 10/09/19 07:45 FL cervical 2-3V Routine FL fluoroscopy <1hr Routine Hospital Course (1) Cervical stenosis of spinal canal: Patient went anterior cervical discectomy and fusion troll as well as taken orthopedic for postoperative. Postop day 1 she is swallowing well no hoarseness arm symptoms are improved with strength testing. Subsequently discharged home. Discharge orders and instructions from the chart for further review. Total Time Total Time Spent Total Time Spent (In Minutes): 20 minutes Discharge Plan Discharge Items Patient Disposition: Home - Self-Care Reason For Visit: Spinal Stenosis, Cervical Region Discharge Diagnosis: Cervical spinal stenosis Activity: As commented below Non-emergency contact: Primary Care Provider Call non-emergency contact if: you have any medication questions Follow-up/Referrals: Randi Shaw DO [Primary Care Provider] - Diet: Regular Addtl Attending Provider Instructions: ACTIVITY RECOMMENDATIONS: SELF CARE INSTRUCTIONS AFTER CERVICAL FUSIONS 1. No smoking. Smoking drastically decreases the chance of a solid fusion. 2. No bending, lifting more than 5 pounds, or twisting (roll like a log when turning in bed). 3. You may shower 3 days after surgery. Thoroughly dry wound. Do not soak in the tub. 4. Cervical collar: Must be worn at all times including sleeping. You may remove the brace only to bath, eat and if you are sitting in a recliner. 5. Please walk as much as you can for exercise. Gradually increase the distance that you walk as your endurance increases. SPECIAL CARE INSTRUCTIONS: VERY IMPORTANT TO READ AND REVIEW A. Do not take any anti-inflammatory medications (i.e. Indocin, Advil, Aspirin, Naprosyn, Aleve, Motrin, etc.) as these may inhibit the chance of a solid fusion. Tylenol is okay to take. B. Your surgical incision has been closed with a cosmetic suture under the skin that will dissolve in about 6 weeks. In 14 days, you can use a pair of c lean scissors and cut the suture that is left outside of the skin at the ends of your incision. C. Complications are uncommon, but please contact us if you have any signs or symptoms of: 1. wound infection (fever higher than 102.5 degrees F, redness, separation of wound, drainage, or increasing pain from the incision) 2. blood clots in legs (pain, swelling, redness and warmth in legs) 3. urinary tract infection (fever higher than 102.5 degrees, burning upon urination or increased frequency of urination) 4. nerve problems (inability to walk on your toes or heels, numbness, loss of bowel or bladder control) 5. any other symptoms that concern you. D. Please call the office at if you have any concerns or questions about your operation or recovery. MANAGING PAIN AFTER SPINAL SURGERY 1. Narcotic medication is intended for short-term use and will be provided for surgical pain. Surgical pain usually lasts for a period of 4-6 weeks. Narcotic medication includes Percocet, Vicodin, Darvocet, Tylenol #3 or Lortab. 2. Longer-term pain is more appropriately treated with non-narcotic medication such as Tylenol ES. 3. Muscle spasm is not appropriately treated with narcotics. Muscle relaxers such as Soma, Flexeril or Skelaxin can be used along with Tylenol ES. 4. Remember that we all live with some "aches and pains". This is not unusual or uncommon after an injury or as we get older. 5. We will provide appropriate medication within the normal guidelines of their prescribed use. We will also be very cautious and aware of potential abuse and extended duration of patients' medication needs. 6. Please allow 2-3 days to process refills. Prescriptions will not be mailed but must be picked up at the office. FOLLOW UP VISIT: Keep your scheduled follow-up appointment. Any questions, please call the office at . Pending Studies at Discharge: No Stand-Alone Forms: [facility], Opioid Pain Management, Smoking Cessation Medications and DC Order Prescriptions: New oxycodone 5 mg tablet 5 mg PO Q6H PRN (Reason: pain, severe) Qty: 10 RF: 0 Continued amlodipine 5 mg Tablet 5 mg PO QAM RF: 0 [id number]-[id number] 50-325-40 mg Tablet 1 tab PO HS PRN (Reason: Migraine Headache) RF: 0 zonisamide [Zonegran] 100 mg Capsule 200 mg PO BID RF: 0 metoprolol tartrate 25 mg Tablet 25 mg PO BID RF: 0 cholecalciferol (vitamin D3) [Vitamin D3] 25 mcg (1,000 unit) Tablet 25 mcg PO QAM RF: 0 Daliresp 500 mcg Tablet 500 mcg PO QAM RF: 0 Trelegy Ellipta 100-62.5-25 mcg Blister With Device 1 inh INHALATION DAILY PRN (Reason: Shortness Of Breath) RF: 0 Centrum Women 18-400 mg-mcg Tablet 2 tab PO DAILY RF: 0 Discontinued hydrocodone-acetaminophen 10-325 mg Tablet 1 tab PO Q6H PRN (Reason: Pain) RF: 0 Discharge Orders: Discharge Order (Routine); Ordered 10/10/19 Ordered By: Juancarlos Sharma/Other Patient Handouts: DVT Post Op Prevention, Preventing Deep Vein Thrombosis, Diet Soft Dc, ED Soft Diet Admission Data Admit Date/Time: 10/09/19 09:28 Attending Provider: Juancarlos Maria Admit Provider: Juancarlos Maria Primary Care Provider: Randi Shaw Other Providers: Ever Muhammad Other Interventions: Discharge Summary Assessment (RN) Last Done: 10/10/19 08:56
[2019-10-10] MEDS ORDERED: POLYETHYLENE (MIRALAX) 17 GM PACK PO SCH (12:00)
[2019-10-11] MEDS ORDERED: bisacodyL 10 MG SUPP PR PRN (09:19)
== END 2019-10-10 10:36 | disposition home or self-care (01) | DRG 473 ==
LOC: ASU 05:59 → 3E 09:28